=== PATIENT | female | born 1955 | race Caucasian/White ===

== ENCOUNTER → 2019-06-30 | Outpatient (CLI) | payer OTHER | LOC: M.CT 07:52 | DX: Z13.6 Encounter for screening for cardiovascular disorders (principal); E78.5 Hyperlipidemia, unspecified ==

== ENCOUNTER → 2019-11-11 | Outpatient (CLI) | payer MEDICARE, OTHER ==
--- NOTE | 2019-11-11 16:54 | CARDNUC ---
[place] [address] CARDIAC NUCLEAR IMAGING REPORT Name: MEDINA HERRERA Room: [facility]#: [id number] Admission: 11/11/19 Attend Phys: Onel Valadez, Discharge: Date of : 51 Date of Service: 11/11/19 1653 Report #: [id number] THIS REPORT FOR: //name// APPROVED REPORT Study performed: 11/11/2019 14:16:47 Exam: Nuclear Stress Test Indication: Chest pain Patient Location: Out-Patient Stress Tech: Georgette Andres Stress Nurse: Jessica Pike Tech:JALEN Calhoun Ht: 5 ft 1 in Wt: 141 lbs BSA: 1.63 m2 BMI: 26.63 Medical History Medical History: Angina, CAD non obstructive, Past smoker. Medications: None Allergies: Codeine. Cardiac Risk Factors: Age, FHX of CAD, Past Smoker. Previous Cardiac Procedures: None Pretest Chest Pain Characteristics: No chest pain Exercise History: Indeterminate Meds Held (24 hrs): None Stress Test Details Stress Test: Pharmacologic stress was paired with low level exercise. Reason for pharmacologic stress test: physical limitation. HR Resting HR: 60 bpm Max Heart Rate (APMHR): 154 bpm Max HR Achieved: 118 bpm Target HR (85% APMHR): 130 bpm % of APMHR: 76 Recovery HR: 97 bpm BP Resting BP: 107/68 mmHg Max BP: 130/74 mmHg ECG Resting ECG: [place] [address] CARDIAC NUCLEAR IMAGING REPORT Name: MEDINA HERRERA Room: [facility]#: [id number] Admission: 11/11/19 Attend Phys: Onel Valadez, Discharge: Date of : 51 Date of Service: 11/11/19 1653 Report #: [id number] Stress ECG: Sinus Tachycardia ST Change: None Arrhythmia: None Recovery ECG: Sinus Rhythm Recovery ST Change: None Recovery Arrhythmia: None Clinical Reason for Termination: Completed protocol Stress Symptoms: None Exercise duration: 4 min 00 sec Exercise capacity: 2.30 METs The patient tolerated Lexiscan infusion without significant cardiac symptoms. Nurse Comments A 64 year old female presented for a wallking Lexiscan r/t recent chest discomfort. Test was well tolerated. Recovery was unremarkable with PO caffeine, effective. Patient was escorted by staff to Nuclear Medicine for imaging. Patient was stable and stated she felt good at that time. Stress ECG Conclusion The baseline 12-lead EKG shows sinus rhythm with normal ST segment and T wave morphology. EKGs obtained during and post walking Lexiscan protocol showed sinus rhythm and sinus tachycardia with no significant ST segment or T wave changes when compared to baseline. There were no stress-induced arrhythmias. NM EXAM: Myocardial Perfusion REST/STRESS Imaging Protocol: Rest Tc-99m/Stress Tc-99m 1 day Resting Data Rest SPECT myocardial perfusion imaging was performed in supine position 30 minutes following the intravenous injection of 11.4 mCi of Tc-99m Sestamibi. Time of rest injection: 1300 Date: 11/11/2019 The images were gated to evaluate regional wall motion and calculate left ventricular ejection fraction. Administration Route: IV Administration Site: Right AC Pharmacologic Stress Pharmacologic stress test was performed by injecting Regadenoson 0.4 mg IV push followed by the intravenous injection of 32.2 mCi of Tc-99m [place] [address] CARDIAC NUCLEAR IMAGING REPORT Name: MEDINA HERRERA Room: [facility]#: [id number] Admission: 11/11/19 Attend Phys: Onel Valadez, Discharge: Date of : 51 Date of Service: 11/11/19 1653 Report #: [id number] Time of stress injection: 1435 Date: 11/11/2019 Administration Route: IV Administration Site: Right AC Gated Stress SPECT was performed 40 minutes after stress injection. The images were gated to evaluate regional wall motion and calculate left ventricular ejection fraction. Prone imaging was performed. Study Quality Study: Good Artifact: No artifact Study Data At rest, the left ventricular ejection fraction was 79%.. Post stress, the left ventricular ejection was 80%.. TID = 0.87. Perfusion Perfusion images obtained at rest and post Lexiscan stress show uniform uptake of the radioisotope throughout the myocardium with no defect to suggest ischemia or infarct. Wall Motion Normal left ventricular wall motion. Nuclear Conclusion ECG Findings: negative for ischemia Clinical Findings: negative for ischemia Nuclear Findings: negative for ischemia Exercise Capacity: not assessed Left Ventricular Function: normal Risk Study: low Myocardial perfusion images show uniform uptake of the radioisotope throughout the myocardium with no defect to suggest infarct or ischemia. Global LV systolic function is normal on gated studies. This is a low risk study. <Conclusion> The baseline 12-lead EKG shows sinus rhythm with normal ST segment and T wave morphology. EKGs obtained during and post walking Lexiscan protocol showed sinus rhythm and sinus tachycardia [place] [address] CARDIAC NUCLEAR IMAGING REPORT Name: MEDINA HERRERA Room: [facility]#: [id number] Admission: 11/11/19 Attend Phys: Onel Valadez, Discharge: Date of : 51 Date of Service: 11/11/19 1653 Report #: [id number] segment or T wave changes when compared to baseline. There were no stress-induced arrhythmias. <ELECTRONICALLY SIGNED> By: Onel Valadez MD, [facility] 01/06/23 1653 52 50 Onel Valadez MD, FACC /INF
== END ==
LOC: M.NUC 10-12 15:21
DX: R07.9 Chest pain, unspecified (principal); I25.10 Atherosclerotic heart disease of native coronary artery without angina pectoris; Z87.891 Personal history of nicotine dependence; Z88.8 Allergy status to other drugs, medicaments and biological substances

== ENCOUNTER → 2020-02-26 | Outpatient (CLI) | payer MEDICARE, OTHER | LOC: M.MRI 01-27 11:30 | DX: S43.402A Unspecified sprain of left shoulder joint, initial encounter (principal); G89.29 Other chronic pain; X58.XXXA Exposure to other specified factors, initial encounter; Y93.89 Activity, other specified; Y92.89 Other specified places as the place of occurrence of the external cause; Y99.8 Other external cause status ==

== ENCOUNTER → 2020-11-11 | Outpatient (CLI) | payer MEDICARE, OTHER | LOC: M.MRI 11-02 11:30 | PROVIDERS: ATTEND Family Medicine | DX: M54.6 Pain in thoracic spine (principal); G89.29 Other chronic pain; M79.89 Other specified soft tissue disorders ==

== ENCOUNTER 2021-10-24 10:31 | Inpatient (IN) | payer MEDICARE, OTHER ==
[~2021-10-24] VITALS: Ht 154.9 cm; Wt 65.8 kg
[2021-10-24 10:52] VITALS: BP 107/60
[2021-10-24] MEDS ORDERED: ZINC30 M1 PO (10:56)
[2021-10-24] MEDS ORDERED: ADVIL100 M3 PO (10:56)
[2021-10-24] MEDS ORDERED: ALBUTEROL2.5 MG/0.1 INH (10:56)
[2021-10-24 12:40] LABS: ABSOLUTE LYMPHOCYTES 0.9 thou/uL (0.8-5.3); ABSOLUTE MONOCYTES 0.4 thou/uL (0.0-1.2); ABSOLUTE NEUTROPHILS 6.6 thou/uL (1.6-8.1); BASOPHILS 0.2 %; EOSINOPHILS 0.1 %; HEMATOCRIT 40.4 % (37.0-47.0); HEMOGLOBIN 13.5 gm/dL (12.0-15.0); LYMPHOCYTES 11.7 %; MCH 28.5 pg (26.0-34.0); MCHC 33.4 g/dL (28.0-37.0); MCV 85.3 fL (80.0-100.0); MONOCYTES 4.5 %; MPV 7.7 fl. (7.2-11.1); NUCLEATED RBCS 0 /100WBC; PLATELET COUNT* 266 thou/uL (150-400); POLYS 83.5 %; RBC 4.73 mil/uL (4.20-5.00); RDW-CV 13.4 % (10.5-14.5); WBC 7.9 thou/uL (4.0-11.0)
[2021-10-24 12:44] LABS: CALCIUM 9.2 mg/dL (8.5-10.1); POTASSIUM 3.7 mmol/L (3.5-5.1)
[2021-10-24 12:55] LABS: ALBUMIN 2.6 g/dL (3.4-5.0); TOTAL BILIRUBIN 0.4 mg/dL (<0.1-1.0); TOTAL PROTEIN 6.8 g/dL (6.4-8.2)
--- NOTE | 2021-10-24 12:57 | EKG ---
[place] [address] ELECTROCARDIOGRAM REPORT Name: MEDINA HERRERA Room: [place] [address] ADM [facility].#: [id number] Admission: 10/24/21 Attend Phys: Gage Pablo, Discharge: Date of : 51 Date of Service: 10/24/21 1058 Report #: [id number] THIS REPORT FOR: //name// [facility] ED Test Date: 2021-10-24 Test Time: 10:58:43 Pat Name: MEDINA HERRERA Department: Room: [facility] Gender: F Heel Seat Laster: ANNEL : 1955 Requested By: Clem Alvarenga Order Number: [id number] MD: Onel Valadez Measurements Intervals [place] Rate: 98 P: 54 RI: 129 QRS: -14 QRSD: 87 T: -1 QT: 333 QTc: 426 Interpretive Statements Sinus rhythm Abnormal R-wave progression, early transition No previous ECG available for comparison Electronically Signed On 10-24-2021 12:57:05 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
--- NOTE | 2021-10-24 14:18 | NUR ---
Pt is admitted on 10/24/21 with Covid. Called pt's spouse - Jm at: [phone] to complete assessment. Pt and spouse live in a house on 4 acres with 2 steps to enter but they do have steps down to the basement. Pt was independent in ADL's and Mobility. Pt last saw her PCP on 10/12/21 when she tested positive for Covid. Pt has no hx of HH/SNF/ or DME. Spouse reports pt has completed DPOA paperwork nominating him to make decisions and reports we should have a copy. Pt fills her medications at the [facility] on [address] in [place]. Anticipate patient may need SNF vs Home Health. CM to follow for discharge planning. for discharge planning.
[2021-10-24 17:46] VITALS: BP 124/55
[2021-10-24 18:23] VITALS: BP 118/63
[2021-10-24] MEDS ORDERED: RESTASIS MULTI5.5 ML LT. EYE (19:36)
[2021-10-24 20:30] VITALS: BP 103/49
[2021-10-25] VITALS: BP 96/45
[2021-10-25 04:00] VITALS: BP 103/47
[2021-10-25 04:31] LABS: ABSOLUTE LYMPHOCYTES 0.9 thou/uL (0.8-5.3); ABSOLUTE MONOCYTES 0.3 thou/uL (0.0-1.2); ABSOLUTE NEUTROPHILS 3.6 thou/uL (1.6-8.1); BASOPHILS 0.1 %; HEMATOCRIT 36.1 % (37.0-47.0); LYMPHOCYTES 18.9 %; MCH 28.3 pg (26.0-34.0); MCHC 33.3 g/dL (28.0-37.0); MONOCYTES 5.7 %; MPV 7.8 fl. (7.2-11.1); NUCLEATED RBCS 0 /100WBC; PLATELET COUNT* 236 thou/uL (150-400); POLYS 75.3 %; RBC 4.24 mil/uL (4.20-5.00); RDW-CV 13.4 % (10.5-14.5); WBC 4.7 thou/uL (4.0-11.0)
[2021-10-25 04:39] LABS: CALCIUM 8.9 mg/dL (8.5-10.1); CREATININE 0.8 mg/dL (0.6-1.3); POTASSIUM 3.6 mmol/L (3.5-5.1)
--- NOTE | 2021-10-25 07:42 | NUR ---
PATIENT SLEPT MOST OF THE NIGHT. IV REMAINS SALINE LOCKED. IV MEDS WERE GIVEN ORDERED. PATIENT REMAIN ON OXYGEN AT 2L SATTING MID 90S. PATIENT COULD POSSIBLY GO HOME. WILL CONTINUE TO MONITOR.
[2021-10-25 08:37] VITALS: BP 133/61
--- NOTE | 2021-10-25 12:32 | NUR ---
CM FOLLOWUP PT NOT MED CLEAR. PT CURRENTLY ON 2L O2. PT HAS NO ANTICIPATED NEEDS UPON DC. CM TO FOLLOW TO SUPPORT NEEDED.
[2021-10-25 13:02] VITALS: BP 104/49
[2021-10-25 16:51] VITALS: BP 143/51
[2021-10-25 20:01] VITALS: BP 137/72
[2021-10-26] VITALS: BP 109/59
[2021-10-26 03:44] LABS: ABSOLUTE LYMPHOCYTES 1.4 thou/uL (0.8-5.3); ABSOLUTE MONOCYTES 0.9 thou/uL (0.0-1.2); ABSOLUTE NEUTROPHILS 12.8 thou/uL (1.6-8.1); BASOPHILS 0.1 %; HEMOGLOBIN 11.4 gm/dL (12.0-15.0); LYMPHOCYTES 9.2 %; MCH 28.1 pg (26.0-34.0); MCHC 33.4 g/dL (28.0-37.0); MCV 84.2 fL (80.0-100.0); MPV 7.6 fl. (7.2-11.1); NUCLEATED RBCS 0 /100WBC; PLATELET COUNT* 280 thou/uL (150-400); POLYS 84.7 %; RBC 4.05 mil/uL (4.20-5.00); RDW-CV 13.3 % (10.5-14.5); WBC 15.1 thou/uL (4.0-11.0)
[2021-10-26 04:00] VITALS: BP 108/46
[2021-10-26 04:09] LABS: ALBUMIN 2.1 g/dL (3.4-5.0); CALCIUM 8.9 mg/dL (8.5-10.1); CREATININE 0.8 mg/dL (0.6-1.3); POTASSIUM 4.2 mmol/L (3.5-5.1); TOTAL BILIRUBIN 0.2 mg/dL (<0.1-1.0); TOTAL PROTEIN 5.3 g/dL (6.4-8.2)
--- NOTE | 2021-10-26 04:54 | NUR ---
ALERT AND ORIENTED, UP AD WARD, 2L-O2 NC. RECEIVED ALL MEDS SCHEDULED, NO REPORTS OF WORSENING OF CONDITION. SHE SLEPT PRONE ALL SHIFT, DID WELL.
[2021-10-26 08:00] VITALS: BP 113/60
[2021-10-26 11:32] VITALS: BP 96/59
--- NOTE | 2021-10-26 15:15 | NUR ---
CM FOLLOWUP PT NOT MED CLEAR TO DC. PT PENDING CT. PT MAY BE MED CLEAR TO DC TOMMOROW OR THE FOLLOWING DAY. UPON MED CLEARANCE, PT TO DC HOME WITH SPOUSE. PT MAY NEED HOME O2 AT TIME OF DC. CM TO FOLLOW.
[2021-10-26 17:19] VITALS: BP 103/52
[2021-10-26 20:00] VITALS: BP 102/48
[2021-10-27] VITALS: BP 103/44
[2021-10-27 04:00] VITALS: BP 113/60
--- NOTE | 2021-10-27 05:44 | NUR ---
ASSUMED CARE OF PT AFTER REPORT AT 1930. PT A&OX4. VSS. PHYSICAL ASSESSMENT COMPLETED AND CHARTED. PT ON O2 AT 2LNC. PT TRACING SR/SB ON TELE. PT UPADLIB TO RESTROOM. PT DENIES ANY PAIN. CALL LIGHT WITHIN REACH.
[2021-10-27 08:00] VITALS: BP 101/49
[2021-10-27 10:47] LABS: ABSOLUTE LYMPHOCYTES 0.9 thou/uL (0.8-5.3); ABSOLUTE MONOCYTES 0.6 thou/uL (0.0-1.2); ABSOLUTE NEUTROPHILS 7.8 thou/uL (1.6-8.1); BASOPHILS 0.2 %; HEMATOCRIT 35.3 % (37.0-47.0); HEMOGLOBIN 11.8 gm/dL (12.0-15.0); LYMPHOCYTES 10.1 %; MCH 28.2 pg (26.0-34.0); MCHC 33.4 g/dL (28.0-37.0); MCV 84.4 fL (80.0-100.0); MONOCYTES 6.3 %; MPV 7.9 fl. (7.2-11.1); NUCLEATED RBCS 0 /100WBC; PLATELET COUNT* 310 thou/uL (150-400); POLYS 83.4 %; RBC 4.18 mil/uL (4.20-5.00); RDW-CV 13.3 % (10.5-14.5); WBC 9.3 thou/uL (4.0-11.0)
[2021-10-27 10:56] LABS: ALBUMIN 2.2 g/dL (3.4-5.0); CALCIUM 8.7 mg/dL (8.5-10.1); CREATININE 0.7 mg/dL (0.6-1.3); POTASSIUM 3.7 mmol/L (3.5-5.1); TOTAL BILIRUBIN 0.4 mg/dL (<0.1-1.0); TOTAL PROTEIN 5.3 g/dL (6.4-8.2)
[2021-10-27] MEDS ORDERED: DEXAMETHASONE1 MG PO (11:53)
[2021-10-27] MEDS ORDERED: DOXYCYCLINE 10100 MG PO (11:53)
[2021-10-27] MEDS ORDERED: PROTONIX40 M2 PO (11:53)
[2021-10-27 13:12] VITALS: BP 113/74
--- NOTE | 2021-10-27 13:36 | NUR ---
CM FOLLOWUP PT MED CLEAR FOR DC HOME WITH HH AND O2. HH ARRANGED [facility]IA [facility] ([phone]). PT PENDING REST/EX TEST FOR DETERMINATION OF 02 NEEDS. CM FAXED H&P AND FACE SHEET TO [employer] TO INITATE THE PROCESS OF OBTAINING O2 FOR PT. ONCE REST/EX TEST IS COMPLETE, THE TEST AND THE SCRIPT WILL NEED TO BE FAXED TO [employer] SO THAT O2 CAN BE PROVIDED. [facility] CONTACT INFORMATION IS FOLLOWS: PHONE - [phone]/ FAX - [phone]
[2021-10-27 13:45] VITALS: BP 113/74
[2021-10-27 14:48] VITALS: BP 113/74
--- NOTE | 2021-10-27 16:21 | NUR ---
The patient discharge. No questions voiced. IV and monitor removed. The patient packed all belongings. Wheeled to private car. The patient is alert.
== END 2021-10-27 16:00 | disposition home health service (06) | DRG 177 ==
LOC: M.ERS 10:31 → M.ORTHSURG 12:12 → M.TBA-ER 12:12 → M.ORTHSURG 18:00
PROVIDERS: Family Medicine; ADMIT Internal Medicine; ATTEND Internal Medicine
PROC: XW033E5 Introduction of Remdesivir Anti-infective into Peripheral Vein, Percutaneous Approach, New Technology Group 5 (ICD-10-PCS; principal; 2021-10-24)
DX: U07.1 COVID-19 (principal); J96.01 Acute respiratory failure with hypoxia; J12.82 Pneumonia due to coronavirus disease 2019; J45.909 Unspecified asthma, uncomplicated; Z88.8 Allergy status to other drugs, medicaments and biological substances

== ENCOUNTER → 2021-12-05 | Outpatient (CLI) | payer MEDICARE, OTHER ==
[~2021-12-05] MED LIST: ADVIL100 M3 PO; ALBUTEROL2.5 MG/0.1 INH; DEXAMETHASONE1 MG PO; DOXYCYCLINE 10100 MG PO; PROTONIX40 M2 PO; RESTASIS MULTI5.5 ML LT. EYE; ZINC30 M1 PO
[2021-12-05 10:23] LABS: CALCIUM 9.5 mg/dL (8.5-10.1); CREATININE 0.8 mg/dL (0.6-1.3); POTASSIUM 4.2 mmol/L (3.5-5.1)
== END ==
LOC: M.CT 11-24 12:19 → M.LAB 09:59 → M.CT 11:00
PROVIDERS: ATTEND Family Medicine
DX: K76.89 Other specified diseases of liver (principal); M41.80 Other forms of scoliosis, site unspecified; U07.1 COVID-19; J12.82 Pneumonia due to coronavirus disease 2019